=== PATIENT | male | born 1970 | race Caucasian/White ===

== ENCOUNTER → 2023-12-17 | Outpatient (CLI) | payer OTHER ==
--- NOTE | 2023-12-17 21:23 | US ---
EXAMINATION TYPE: US gallbladder DATE OF EXAM: 12/17/2023 COMPARISON: NONE CLINICAL INDICATION: Male, 53 years old with history of R10.11 RUQ PAIN; Pt states ABD pain, especial ly post prandial TECHNIQUE: Multiple sonographic images of the right upper quadrant are obtained. FINDINGS: EXAM MEASUREMENTS: Liver Length: 17.8 cm Gallbladder Wall: 0.2 cm CBD: 0.6 cm Right Kidney: 10.1 x 4.3 x 4.2 cm MRI TECHNICIAN NOTES: Pancreas: 2mm panc duct visualized, upper limits of normal, tail obscured by overlying bowel gas Liver: Visualized portions appeared wnl Gallbladder: wnl Evidence for sonographic Pfeiffer's sign: No CBD: Upper limits of normal Right Kidney: wnl IMPRESSION: 1. Borderline hepatomegaly at 17.8 cm. 2. Borderline dilated bile duct at 6 mm. This may be chronic for the patient. Correlate with alkaline phosphatase and bilirubin levels to exclude early biliary obstruction. 3. No gallstones.
== END | disposition home or self-care (01) ==
LOC: RADUSWWP 08:20
PROVIDERS: ATTEND Family Medicine
DX: K83.8 Other specified diseases of biliary tract (principal); R16.0 Hepatomegaly, not elsewhere classified
CPT/HCPCS: 76705